=== PATIENT | male | born 1985 | race Caucasian/White ===

== ENCOUNTER → 2019-08-14 | Outpatient (CLI) | payer OTHER | LOC: NUC 08:21 | DX: R07.9 Chest pain, unspecified (principal); E78.00 Pure hypercholesterolemia, unspecified; E78.5 Hyperlipidemia, unspecified; Z82.49 Family history of ischemic heart disease and other diseases of the circulatory system ==

== ENCOUNTER → 2019-10-27 | Outpatient (CLI) | payer OTHER | LOC: CAT 06:38 | DX: R07.9 Chest pain, unspecified (principal) ==